=== PATIENT | female | born 1970 | race Caucasian/White ===

== ENCOUNTER 2019-05-22 05:10 | Emergency (ER) | payer SELFPAY ==
[~2019-05-22] VITALS: Ht 154.9 cm; Wt 67.6 kg
[2019-05-22 05:30] VITALS: BP_SYST 149
--- NOTE | 2019-05-22 05:49 | NUR ---
Pt ambulatory to bed 2 for evaluation
--- NOTE | 2019-05-22 05:56 | NUR ---
Pt presents to ER with with c/o cough, body aches, runny nose, and head pain. Pt A&Ox4. Pt states productive cough presented 4 days ago. Pt states bodyaches, runny nose and headache presented yesterday. Pt states she is currently in no pain. Pt states she took ibuprofen 600 mg at 4 am with relief of pain. Pt denies nausea, vomiting, diarrhea, chills and fever. Pt denies receiving flu vaccine. Will continue to monitor.
--- NOTE | 2019-05-22 06:11 | NUR ---
Radiology at bedside
--- NOTE | 2019-05-22 07:20 | NUR ---
REPORT RECCEIVED FROM KB SORIA
[2019-05-22 07:30] VITALS: BP_SYST 149
--- NOTE | 2019-05-22 07:30 | NUR ---
Patient given written and verbal discharge instructions and verbalizes understanding. ER MD discussed with patient the results and treatment provided. Patient in stable condition. ID arm band removed. Rx of AUGMENTIN AND CHERATUSSIN given. Patient educated on pain management and to follow up with PMD. Pain Scale 0/10. Opportunity for questions provided and answered. Medication side effect fact sheet provided.
== END 2019-05-22 07:30 | disposition home or self-care (01) ==
LOC: SED 05:10
DX: J20.9 Acute bronchitis, unspecified (principal)
CPT/HCPCS: 36415; 71045; 81025; 86710; 99284